=== PATIENT | female | born 1935 | race Caucasian/White ===

== ENCOUNTER 2018-12-01 08:55 | Emergency (ER) | payer MEDICARE ==
[2018-12-01 08:59] VITALS: BP 136/70; PULSE 62; RESP 18; TEMP 98.6
--- NOTE | 2018-12-01 09:19 | ED ---
General Adult HPI - General Chief complaint: Back Pain/Injury Stated complaint: Fall, back pain Time Seen by Provider: 12/01/18 09:01 Source: patient Mode of arrival: wheelchair Limitations: no limitations - History of Present Illness Initial comments: Dictation was produced using [employer] dictation software. please excuse any grammatical, word or spelling errors. Chief Complaint: 82-year-old female presents with back pain after fall. History of Present Illness: She is 82-year-old female she presents today with right lower back pain. Since yesterday she had multiple bouts of nausea and vomiting. During that episode of emesis she syncopized caused her to fall. She woke up on the ground. Patient's fall was unwitnessed. Patient states the fall happened at approximately 3:30 PM yesterday. Patient states that nausea and vomiting are improved. Patient ate at a restaurant and is convinced that she had food poisoning. Patient will go this morning felt asymptomatic except for some mild back pain. She states that her pain was initially felt after the fall and slip progressed until today she feels like it's worse. Patient and motor without complications. Patient has no other complaints at this time. The ROS documented in this emergency department record has been reviewed and confirmed by me. Those systems with pertinent positive or negative responses have been documented in the HPI. All other systems are other negative and/or noncontributory. PHYSICAL EXAM: General Impression: Alert and oriented x3, not in acute distress HEENT: Normocephalic atraumatic, extra-ocular movements intact, pupils equal and reactive to light bilaterally, mucous membranes moist. Cardiovascular: Heart regular rate and rhythm, S1&S2 audible, no murmurs, rubs or gallops Chest: Lungs clear to auscultation bilaterally, no rhonchi, no wheeze, no rales Abdomen: Bowel sounds present, abdomen soft, non-tender, non-distended, no organomegaly Musculoskeletal: Pulses present and equal in all extremities, no peripheral edema, tenderness to palpation over the right lower lumbar area paraspinally to the soft tissue Motor: no focal deficits noted Neurological: CN II-XII grossly intact, no focal motor or sensory deficits noted Skin: Intact with no visualized rashes Psych: Normal affect and mood ED course: 82-year-old female presents with lower back pain after fall. Patient's episode of syncope is consistent with vasovagal syncope secondary to Valsalva from emesis. Patient's fall occurred unwitnessed history of GERD. She has no headache or neck pain symptoms at this time. External examination does not show any trauma. Vital signs upon arrival except limits. Patient and her baseline.CT of the abdomen and pelvis was obtained. There is findings of subacute versus chronic T12 compression fracture. Patient fell yesterday does not appear to correlate with findings on CT imaging. She was reevaluated after several hours that she did report feeling some head pain after fall. CT of the head was obtained showing no acute processes. Patient was given Lidoderm patch. Patient ambulatory at baseline. Patient clear for discharge. Patient tolerating by mouth. Patient clear for discharge.. Return parameters discussed. Patient is unremarkable agreeable to disposition. - Related Data Home Medications Medication Instructions Recorded Confirmed Acetaminophen/Diphenhydramine 2 tab PO HS 12/01/18 12/01/18 [Tylenol PM 500-25mg] Atenolol [Tenormin] 50 mg PO BID 12/01/18 12/01/18 Atorvastatin [Lipitor] 10 mg PO DAILY 12/01/18 12/01/18 Biotin 10,000 mcg PO DAILY 12/01/18 12/01/18 Cholecalciferol [Vitamin D3 (25 5,000 unit PO DAILY 12/01/18 12/01/18 Mcg = 1000 Iu)] Cyanocobalamin (Vitamin B-12) 1,000 mcg PO DAILY 12/01/18 12/01/18 [Vitamin B-12] Multivitamins, Thera [Multivitamin 1 tab PO DAILY 12/01/18 12/01/18 (formulary)] Topiramate [Topamax] 50 mg PO DAILY 12/01/18 12/01/18 Vitamin A 8,000 unit PO DAILY 12/01/18 12/01/18 amLODIPine [Norvasc] 10 mg PO DAILY 12/01/18 12/01/18 Allergies Allergy/AdvReac Type Severity Reaction Status Date / Time Iodinated Contrast- Oral and Allergy Unknown Verified 12/01/18 09:57 IV Dye Review of Systems ROS Statement: Those systems with pertinent positive or pertinent negative responses have been documented in the HPI. ROS Other: All systems not noted in ROS Statement are negative. Past Medical History Past Medical History: Hypertension Additional Past Medical History / Comment(s): diverticulitis History of Any Multi-Drug Resistant Organisms: None Reported Past Psychological History: No Psychological Hx Reported Smoking Status: Never smoker Past Alcohol Use History: None Reported Past Drug Use History: None Reported General Exam Limitations: no limitations Course Vital Signs 12/01/18 08:57 Temperature 98.6 F Pulse Rate 62 Respiratory 18 Rate Blood Pressure 136/70 O2 Sat by Pulse 96 Oximetry Disposition Clinical Impression: Back strain Disposition: HOME SELF-CARE Condition: Good Instructions (If sedation given, give patient instructions): Acute Low Back Pain (ED) Is patient prescribed a controlled substance at d/c from ED?: No Referrals: Yasmeen Jones MD [Primary Care Provider] - 1-2 days Time of Disposition: 12:08
--- NOTE | 2018-12-01 09:46 | CT ---
EXAMINATION TYPE: CT abdomen pelvis wo con DATE OF EXAM: 12/01/2018 HISTORY: Abdominal and low back pain since fall injury yesterday. CT DLP: 520.2 mGycm. Automated Exposure Control for Dose Reduction was Utilized. TECHNIQUE: CT scan of the abdomen and pelvis is performed without oral or IV contrast. COMPARISON: CT abdomen November 11, 2012 FINDINGS: Within the limitations of a non-contrast study, the following observations are made. LUNG BASES: No significant abnormality is appreciated. LIVER/GB: Cholecystectomy clips are redemonstrated. PANCREAS: No significant abnormality is seen. SPLEEN: No significant abnormality is seen. ADRENALS: No significant abnormality is seen. KIDNEYS: Cortical thinning in both kidneys is again seen. There is simple appearing parapelvic cysts bilaterally more numerous in the left kidney versus right kidney. BOWEL: There is partial visualization of redemonstrated surgical change in the distal esophagus above diaphragm. No suspicious small or large bowel dilatation. Marked colonic diverticulosis involving le ft and sigmoid colon without CT evidence for acute diverticulitis. Nonabsorbed pill felt present on t he left rectum axial image 74. GENITAL ORGANS: Anteverted uterus projects to the left of midline. Right-sided pelvic phleboliths. LYMPH NODES: No greater than 1cm abdominal or pelvic lymph nodes are appreciated. OSSEOUS STRUCTURES: Multilevel facet arthropathy in the lower lumbar spine. Severe multilevel spurrin g in the lower thoracic spine. Linear lucency suggestive of age indeterminate fracture right anterior T12 vertebra has some surrounding sclerosis suggesting it is subacute or chronic in age and fairly w ell-defined confirmed sagittal image 57 new from prior. Prominent Schmorl node right superior L1 endp late is redemonstrated exaggerated lumbar lordosis is seen. Demineralization of osseous structures is evident. OTHER: Mild to moderate calcified plaque of aorta extends into branch vessels. IMPRESSION: There is suspected subacute or chronic incomplete fracture through the right anterior T12 vertebra. No acute fracture or suspicious acute findings seen to account for patient's symptoms of p ain since recent fall injury yesterday.
[2018-12-01] MEDS ORDERED: LIDOCAINE 5% PATCH TOPICAL ONE (11:18)
--- NOTE | 2018-12-01 12:05 | CT ---
EXAMINATION TYPE: CT brain wo con DATE OF EXAM: 12/01/2018 HISTORY: Syncope. CT DLP: 1099.4 mGycm. Automated Exposure Control for Dose Reduction was Utilized. TECHNIQUE: CT scan of the head is performed without contrast. COMPARISON: None. FINDINGS: There is no acute intracranial hemorrhage or midline shift identified. There is diffuse v entricular and sulcal prominence consistent with diffuse age-related cerebral atrophy. There is low- attenuation in the periventricular white matter consistent with chronic small vessel ischemic change. The globes are intact and the visualized sinuses are clear. Patchy soft tissue density right exte rnal auditory canals felt to reflect cerumen. No suspicious opacification mastoid air cells is presen t bilaterally. IMPRESSION: No acute intracranial hemorrhage or midline shift. There is mild to moderate diffuse ag e-related cerebral atrophy and mild chronic small vessel ischemic change noted.
[2018-12-02] MEDS ORDERED: LIDOCAINE 5% PATCH TOPICAL ONE (11:18)
== END 2018-12-01 12:13 | disposition home or self-care (01) ==
LOC: EC 08:55
DX: S39.012A Strain of muscle, fascia and tendon of lower back, initial encounter (principal); R11.2 Nausea with vomiting, unspecified; R51 Headache; I10 Essential (primary) hypertension; Z87.19 Personal history of other diseases of the digestive system; Z79.899 Other long term (current) drug therapy; Z91.041 Radiographic dye allergy status; W18.39XA Other fall on same level, initial encounter
CPT/HCPCS: 70450; 74176; 99283

== ENCOUNTER 2018-12-23 13:52 | Emergency (ER) | payer MEDICARE ==
[2018-12-23] MEDS ORDERED: DIAZEPAM 5 MG/ML 2 ML INJ IVP STA (14:36)
[2018-12-23] MEDS ORDERED: MECLIZINE 12.5 MG TAB PO STA (14:36)
--- NOTE | 2018-12-23 14:48 | ED ---
General Adult HPI - General Chief complaint: Dizziness Stated complaint: Dizzy Time Seen by Provider: 12/23/18 14:10 Source: police, RN notes reviewed Mode of arrival: wheelchair Limitations: physical limitation - History of Present Illness Initial comments: This is an 82-year-old female presents emergency Department with vertigo. Patient states she's had vertigo in the past per patient states about 2 weeks ago she did fall and hit her head and came to the ER at that time. Patient states today she was at the hairdresser's and they've been to her head back to wash her hair and all of a sudden everything became spinning. Patient states she still has the sensation that things are spinning a little bit. Patient complains of a mild headache as well she denies any numbness weakness. Patient denies any fever chills per patient denies any chest pain palpitations difficulty breathing or shortness of breath. Patient denies abdominal pain patient denies any nausea vomiting diarrhea. Patient denies any new trauma since that fall 2 weeks ago. - Related Data Home Medications Medication Instructions Recorded Confirmed Acetaminophen/Diphenhydramine 2 tab PO HS 12/01/18 12/23/18 [Tylenol PM 500-25mg] Atenolol [Tenormin] 50 mg PO BID 12/01/18 12/23/18 Atorvastatin [Lipitor] 10 mg PO DAILY 12/01/18 12/23/18 Biotin 10,000 mcg PO DAILY 12/01/18 12/23/18 Cholecalciferol [Vitamin D3 (25 5,000 unit PO DAILY 12/01/18 12/23/18 Mcg = 1000 Iu)] Cyanocobalamin (Vitamin B-12) 1,000 mcg PO DAILY 12/01/18 12/23/18 [Vitamin B-12] Multivitamins, Thera [Multivitamin 1 tab PO DAILY 12/01/18 12/23/18 (formulary)] Topiramate [Topamax] 50 mg PO DAILY 12/01/18 12/23/18 Vitamin A 8,000 unit PO DAILY 12/01/18 12/23/18 amLODIPine [Norvasc] 10 mg PO DAILY 12/01/18 12/23/18 Aspirin [[place] Aspirin EC] 81 mg PO DAILY 12/23/18 12/23/18 Previous Rx's Medication Instructions Recorded Meclizine [Antivert] 25 mg PO TID #20 tab 12/23/18 Nitrofurantoin Monohyd/M-Cryst 100 mg PO Q12HR #14 cap 12/23/18 [Macrobid] Allergies Allergy/AdvReac Type Severity Reaction Status Date / Time Iodinated Contrast- Oral and Allergy Unknown Verified 12/23/18 14:44 IV Dye Review of Systems ROS Statement: Those systems with pertinent positive or pertinent negative responses have been documented in the HPI. ROS Other: All systems not noted in ROS Statement are negative. Past Medical History Past Medical History: Hypertension Additional Past Medical History / Comment(s): diverticulitis, neck tick History of Any Multi-Drug Resistant Organisms: None Reported Past Surgical History: Cholecystectomy, Hernia Repair Additional Past Surgical History / Comment(s): abd fundoplycation Past Psychological History: No Psychological Hx Reported Smoking Status: Never smoker Past Alcohol Use History: None Reported Past Drug Use History: None Reported General Exam - General Exam Comments Initial Comments: GENERAL: Patient is well-developed and well-nourished. Patient is nontoxic and well- hydrated and is in mild distress. ENT: Neck is soft and supple. No significant lymphadenopathy is noted. Oropharynx is clear. Moist mucous membranes. Neck has full range of motion without eliciting any pain. EYES: The sclera were anicteric and conjunctiva were pink and moist. Extraocular movements were intact and pupils were equal round and reactive to light. Eyelids were unremarkable. PULMONARY: Unlabored respirations. Good breath sounds bilaterally. No audible rales rhonchi or wheezing was noted. CARDIOVASCULAR: There is a regular rate and rhythm without any murmurs gallops or rubs. ABDOMEN: Soft and nontender with normal bowel sounds. No palpable organomegaly was noted. There is no palpable pulsatile mass. SKIN: Skin is clear with no lesions or rashes and otherwise unremarkable. NEUROLOGIC: Patient is alert and oriented x3. Cranial nerves II through XII are grossly intact. Motor and sensory are also intact. Normal speech, volume and content. Symmetrical smile. Finger to nose Cerebellar exam grossly intact. MUSCULOSKELETAL: Normal extremities with adequate strength and full range of motion. No lower extremity swelling or edema. No calf tenderness. LYMPHATICS: No significant lymphadenopathy is noted PSYCHIATRIC: Normal psychiatric evaluation. Limitations: physical limitation Course Vital Signs 12/23/18 12/23/18 14:13 15:48 Temperature 97.6 F Pulse Rate 54 L 57 L Respiratory 18 16 Rate Blood Pressure 161/69 155/65 O2 Sat by Pulse 95 99 Oximetry Medical Decision Making - Medical Decision Making EKG shows sinus bradycardia 50 bpm ID interval is 152 QRS is 90 QT intervals 462 QTC is 421. Patient's EKG shows no ST segment elevation or depression no T- wave abnormalities are noted. CT of the brain shows no acute abnormality. Chest x-ray shows no acute abnormality. Patient got Antivert and Valium in the emergency department did feel slightly better. - Lab Data Result diagrams: 12/23/18 15:11 12/23/18 15:11 Lab Results 12/23/18 12/23/18 12/23/18 Range/Units 15:11 15:11 15:11 WBC 7.3 (3.8-10.6) k/uL RBC 4.23 (3.80-5.40) m/uL Hgb 13.1 (11.4-16.0) gm/dL Hct 40.6 (34.0-46.0) % MCV 96.1 (80.0-100.0) fL MCH 31.0 (25.0-35.0) pg MCHC 32.3 (31.0-37.0) g/dL RDW 13.1 (11.5-15.5) % Plt Count 329 (150-450) k/uL Neutrophils % 75 % Lymphocytes % 14 % Monocytes % 5 % Eosinophils % 4 % Basophils % 0 % Neutrophils # 5.5 (1.3-7.7) k/uL Lymphocytes # 1.0 (1.0-4.8) k/uL Monocytes # 0.4 (0-1.0) k/uL Eosinophils # 0.3 (0-0.7) k/uL Basophils # 0.0 (0-0.2) k/uL PT 9.7 (9.0-12.0) sec INR 0.9 (<1.2) APTT 21.6 L (22.0-30.0) sec Sodium 143 (137-145) mmol/L Potassium 4.1 (3.5-5.1) mmol/L Chloride 109 H (98-107) mmol/L Carbon Dioxide 26 (22-30) mmol/L Anion Gap 8 mmol/L BUN 22 H (7-17) mg/dL Creatinine 1.02 (0.52-1.04) mg/dL Est GFR (CKD-EPI)AfAm 59 (>60 ml/min/1.73 sqM) Est GFR (CKD-EPI)NonAf 51 (>60 ml/min/1.73 sqM) Glucose 111 H (74-99) mg/dL Calcium 9.4 (8.4-10.2) mg/dL Magnesium 2.1 (1.6-2.3) mg/dL Total Bilirubin 0.7 (0.2-1.3) mg/dL AST 17 (14-36) U/L ALT 12 (9-52) U/L Alkaline Phosphatase 161 H (38-126) U/L Troponin I (0.000-0.034) ng/mL Total Protein 7.0 (6.3-8.2) g/dL Albumin 3.9 (3.5-5.0) g/dL Urine Color Urine Appearance (Clear) Urine pH (5.0-8.0) Ur Specific [place] (1.001-1.035) Urine Protein (Negative) Urine Glucose (UA) (Negative) Urine Ketones (Negative) Urine Blood (Negative) Urine Nitrite (Negative) Urine Bilirubin (Negative) Urine Urobilinogen (<2.0) mg/dL Ur Leukocyte Esterase (Negative) Urine RBC (0-5) /hpf Urine WBC (0-5) /hpf Urine WBC Clumps (None) /hpf Calcium Oxalate Crystal (None) /hpf Urine Bacteria (None) /hpf Hyaline Casts (0-2) /lpf Granular Casts (0) /lpf Urine Mucus (None) /hpf 12/23/18 12/23/18 Range/Units 15:11 15:45 WBC (3.8-10.6) k/uL RBC (3.80-5.40) m/uL Hgb (11.4-16.0) gm/dL Hct (34.0-46.0) % MCV (80.0-100.0) fL MCH (25.0-35.0) pg MCHC (31.0-37.0) g/dL RDW (11.5-15.5) % Plt Count (150-450) k/uL Neutrophils % % Lymphocytes % % Monocytes % % Eosinophils % % Basophils % % Neutrophils # (1.3-7.7) k/uL Lymphocytes # (1.0-4.8) k/uL Monocytes # (0-1.0) k/uL Eosinophils # (0-0.7) k/uL Basophils # (0-0.2) k/uL PT (9.0-12.0) sec INR (<1.2) APTT (22.0-30.0) sec Sodium (137-145) mmol/L Potassium (3.5-5.1) mmol/L Chloride (98-107) mmol/L Carbon Dioxide (22-30) mmol/L Anion Gap mmol/L BUN (7-17) mg/dL Creatinine (0.52-1.04) mg/dL Est GFR (CKD-EPI)AfAm (>60 ml/min/1.73 sqM) Est GFR (CKD-EPI)NonAf (>60 ml/min/1.73 sqM) Glucose (74-99) mg/dL Calcium (8.4-10.2) mg/dL Magnesium (1.6-2.3) mg/dL Total Bilirubin (0.2-1.3) mg/dL AST (14-36) U/L ALT (9-52) U/L Alkaline Phosphatase (38-126) U/L Troponin I <0.012 (0.000-0.034) ng/mL Total Protein (6.3-8.2) g/dL Albumin (3.5-5.0) g/dL Urine Color Yellow Urine Appearance Turbid H (Clear) Urine pH 5.5 (5.0-8.0) Ur Specific [place] 1.024 (1.001-1.035) Urine Protein 2+ H (Negative) Urine Glucose (UA) Negative (Negative) Urine Ketones Negative (Negative) Urine Blood Small H (Negative) Urine Nitrite Positive H (Negative) Urine Bilirubin Negative (Negative) Urine Urobilinogen <2.0 (<2.0) mg/dL Ur Leukocyte Esterase Large H (Negative) Urine RBC 13 H (0-5) /hpf Urine WBC >182 H (0-5) /hpf Urine WBC Clumps Many H (None) /hpf Calcium Oxalate Crystal Few H (None) /hpf Urine Bacteria Rare H (None) /hpf Hyaline Casts 14 H (0-2) /lpf Granular Casts 7 (0) /lpf Urine Mucus Many H (None) /hpf Disposition Clinical Impression: Vertigo, Urinary tract infection Disposition: HOME SELF-CARE Instructions (If sedation given, give patient instructions): Vertigo (ED) Prescriptions: Meclizine [Antivert] 25 mg PO TID #20 tab Nitrofurantoin Monohyd/M-Cryst [Macrobid] 100 mg PO Q12HR #14 cap Is patient prescribed a controlled substance at d/c from ED?: No Referrals: Yasmeen Jones MD [Primary Care Provider] - 1-2 days Time of Disposition: 16:26
[2018-12-23 15:28] LABS: Basophils % (A) 0 %; Eosinophils # (A) 0.3 k/uL (0-0.7); Eosinophils % (A) 4 %; HCT 40.6 % (34.0-46.0); HGB 13.1 gm/dL (11.4-16.0); Lymphocytes % (A) 14 %; MCHC 32.3 g/dL (31.0-37.0); MCV 96.1 fL (80.0-100.0); Mean Platelet Volume 7.1; Monocytes # (A) 0.4 k/uL (0-1.0); Monocytes % (A) 5 %; Neutrophils # (A) 5.5 k/uL (1.3-7.7); Neutrophils % (A) 75 %; Platelet Count 329 k/uL (150-450); RBC 4.23 m/uL (3.80-5.40); RDW 13.1 % (11.5-15.5); WBC 7.3 k/uL (3.8-10.6)
[2018-12-23 15:37] LABS: Albumin 3.9 g/dL (3.5-5.0); Calcium 9.4 mg/dL (8.4-10.2); Magnesium 2.1 mg/dL (1.6-2.3); Potassium 4.1 mmol/L (3.5-5.1); Total Bilirubin 0.7 mg/dL (0.2-1.3)
--- NOTE | 2018-12-23 15:41 | XR ---
EXAMINATION TYPE: XR chest 2V DATE OF EXAM: 12/23/2018 COMPARISON: NONE HISTORY: Shortness of breath TECHNIQUE: Frontal and lateral views of the chest are obtained. FINDINGS: Scattered senescent parenchymal changes noted. Hyperinflation compatible with COPD. No evidence for infiltrate. No evidence for atelectasis. There is evidence of cardiomegaly without CHF. Mediastinal structures are stable and grossly unremarkable. No evidence for hilar prominence. Degenerative changes dorsal spine. IMPRESSION: 1. No evidence for acute pulmonary disease.
--- NOTE | 2018-12-23 15:43 | CT ---
EXAMINATION TYPE: CT brain wo con DATE OF EXAM: 12/23/2018 COMPARISON: 12/01/2018 HISTORY: Dizziness and nausea. CT DLP: 1107.[address] of the brain was performed. The ventricles, basal cisterns and sulci overlying the cerebral convexities demonstrate mild enlargem ent. There is no evidence for intracranial hemorrhage or sulcal effacement. There is decreased attenuation about the periventricular white matter and deep white matter of both c erebral hemispheres, compatible with chronic small vessel ischemia. Differential diagnosis does inclu de demyelination. No mass effects are seen.No midline shift. Osseous calvarium is intact. If symptoms persist consider MRI. IMPRESSION: 1. Age related atrophic and chronic small vessel ischemic change without acute intracranial process s een at this time.
[2018-12-23 15:46] LABS: INR 0.9 (<1.2); Prothrombin Time 9.7 sec (9.0-12.0)
[2018-12-23 15:47] LABS: Partial Thromboplastin Time 21.6 sec (22.0-30.0)
[2018-12-23 15:49] VITALS: PULSE 57
[2018-12-23 16:09] LABS: Appearance,Urine Turbid (Clear); Bacteria,Urine Rare /hpf; Bilirubin,Urine Negative (Negative); Blood,Urine Small (Negative); Calcium Oxalate Crystals,Urine Few /hpf; Color,Urine Yellow; Glucose,Urine (UA) Negative (Negative); Granular Casts,Urine 7 /lpf (0); Hyaline Casts,Urine 14 /lpf (0-2); Ketones,Urine Negative (Negative); Leukocyte Esterase,Urine Large (Negative); Mucus,Urine Many /hpf; Nitrite,Urine Positive (Negative); PH, Urine 5.5 (5.0-8.0); Protein,Urine 2+ (Negative); RBC,Urine 13 /hpf (0-5); Specific Gravity,Urine 1.024 (1.001-1.035); Urobilinogen,Urine <2.0 mg/dL (<2.0); WBC,Urine >182 /hpf (0-5)
[2018-12-23] MEDS ORDERED: cefTRIAXone IN SWFI 1,000 MG/10 ML SYRINGE IVP STA (16:24)
[2018-12-23 16:53] VITALS: BP 162/67; RESP 18; TEMP 98.4
== END 2018-12-23 17:23 | disposition home or self-care (01) ==
LOC: EC 13:52
DX: R42 Dizziness and giddiness (principal); N39.0 Urinary tract infection, site not specified; R51 Headache; I10 Essential (primary) hypertension; Z79.82 Long term (current) use of aspirin; Z79.899 Other long term (current) drug therapy; Z91.041 Radiographic dye allergy status
CPT/HCPCS: 36415; 80053; 83735; 84484; 85025; 85610; 85730; 81001; 87086; 87077; 87186; 71046; 70450; 99285; 96374; 96375; J3360; J0696